=== PATIENT | male | born 1975 | race Caucasian/White ===

== ENCOUNTER 2020-09-17 02:55 | Emergency (ER) | payer MEDICAID, SELFPAY ==
[~2020-09-17] VITALS: Ht 177.8 cm; Wt 122.5 kg
[2020-09-17 03:00] VITALS: BP_SYST 194
[2020-09-17] MEDS ORDERED: ONDANSETRON HCL 4 MG/2 ML VIAL IVP ONE (03:15)
[2020-09-17] MEDS ORDERED: PANTOPRAZOLE SODIUM 40 MG/VIAL (PROTONIX) IVP ONE (03:15)
[2020-09-17] MEDS ORDERED: cefTRIAXone 1 GM IVPB PREMIX 50 ML IV ONE (03:15)
[2020-09-17] MEDS ORDERED: INSU100V38 SQ (03:44)
[2020-09-17] MEDS ORDERED: INSU100I30 SQ (03:44)
[2020-09-17] MEDS ORDERED: AZEL137S7 NS (03:44)
[2020-09-17] MEDS ORDERED: NEU300 PO (03:44)
[2020-09-17] MEDS ORDERED: FURO-150 PO (03:44)
[2020-09-17] MEDS ORDERED: CYCL-10 PO (03:44)
[2020-09-17] MEDS ORDERED: NAPR-688 PO (03:44)
[2020-09-17] MEDS ORDERED: APIX5TAB4 PO (03:44)
[2020-09-17] MEDS ORDERED: FLUT200B INH (03:44)
[2020-09-17] MEDS ORDERED: CETI10CA20 PO (03:44)
[2020-09-17] MEDS ORDERED: FLUT16SP16 NS (03:44)
[2020-09-17] MEDS ORDERED: GLU500 PO (03:44)
[2020-09-17] MEDS ORDERED: ALBMDI INH (03:44)
[2020-09-17] MEDS ORDERED: TOPXL100 PO (03:44)
[2020-09-17 03:46] LABS: BASOPHILS # (AUTO) 0.1 K/uL (0.0-0.2); BASOPHILS % (AUTO) 0.5 % (0.0-2.0); HEMATOCRIT 43.9 % (36-54); HEMOGLOBIN 14.6 g/dL (14.0-18.0); LYMPHOCYTES # (AUTO) 1.2 K/uL (1.0-5.5); LYMPHOCYTES % (AUTO) 9.4 % (20.5-51.5); MEAN CORPUSCULAR HEMOGLOBIN 30 pg (27-31); MEAN CORPUSCULAR HGB CONC 33 % (32-36); MEAN CORPUSCULAR VOLUME 89 fL (79.0-98.0); MONOCYTES # (AUTO) 0.7 K/uL (0.0-1.0); MONOCYTES % (AUTO) 5.4 % (1.7-9.3); NEUTROPHILS % (AUTO) 84.7 % (40.0-70.0); PLATELET COUNT (AUTO) 321 K/uL (130-430); RED BLOOD CELL COUNT(AUTO) 4.95 MIL/uL (4.2-6.2); RED CELL DISTRIBUTION WIDTH 12.9 % (9.0-15.0)
[2020-09-17 04:00] LABS: ANION GAP 12 (5-15); CALCIUM 11.1 mg/dL (8.4-11.0); CHLORIDE 103 mmol/L (98-107); CREATININE 1.24 mg/dL (0.55-1.30); GLUCOSE 152 mg/dL (70-99); POTASSIUM 4.7 mmol/L (3.5-5.1); SODIUM SERUM 142 mmol/L (136-145); UREA NITROGEN, BLOOD 22 mg/dL (8-21)
[2020-09-17] MEDS ORDERED: NACL 0.9% 1,000 ML IV ONE (04:00)
[2020-09-17 04:06] LABS: GFR AFRICAN AMERICAN 82 mL/min (>90)
[2020-09-17 04:07] LABS: ALANINE AMINOTRANSFERASE 37 U/L (12-78); ALBUMIN 4.1 g/dL (3.4-4.8); ASPARTATE AMINOTRANSFERASE 21 U/L (10-37); TOTAL BILIRUBIN 0.6 mg/dL (0.0-1.0)
[2020-09-17] MEDS ORDERED: DIPHENHYDRAMINE INJ 50 MG/ML VIAL ONE (04:14)
[2020-09-17] MEDS ORDERED: METOCLOPRAMIDE HCL 10 MG/2 ML VIAL ONE (04:14)
[2020-09-17 04:15] LABS: INR 1.1 (0.80-1.20); PROTHROMBIN TIME 11.3 SECS (9.5-12.5)
[2020-09-17] MEDS ORDERED: METOCLOPRAMIDE HCL 10 MG/2 ML VIAL IVP ONE (04:15)
[2020-09-17] MEDS ORDERED: DIPHENHYDRAMINE INJ 50 MG/ML VIAL IVP ONE (04:15)
[2020-09-17] MEDS ORDERED: ONDA-8 TL (05:12)
[2020-09-17 05:17] VITALS: BP_SYST 140
== END 2020-09-17 05:17 | disposition left against medical advice (07) ==
LOC: SED 02:55
DX: K92.2 Gastrointestinal hemorrhage, unspecified (principal); R11.10 Vomiting, unspecified; E11.9 Type 2 diabetes mellitus without complications; Z79.899 Other long term (current) drug therapy; Z79.4 Long term (current) use of insulin; Z20.822 Contact with and (suspected) exposure to COVID-19
CPT/HCPCS: 36415; 71045; 80053; 82962; 83690; 83880; 84484; 85025; 85610; 85730; 87040; 87426; 96365; 96375; 99285; C9113; J0696; J1200; J2405; J2765; J7030

== ENCOUNTER 2021-04-18 20:38 | Emergency (ER) | payer MEDICAID, SELFPAY ==
[~2021-04-18] VITALS: Ht 177.8 cm; Wt 117.9 kg
[~2021-04-18 20:38] MED LIST: ALBMDI INH; APIX5TAB4 PO; AZEL137S7 NS; CETI10CA20 PO; CYCL10TA24 PO; FLUT16SP16 NS; FLUT200B INH; FURO-150 PO; GLU500 PO; INSU100I30 SQ; INSU100V38 SQ; NAPR-688 PO; NEU300 PO; ONDA-8 TL; TOPXL100 PO
[2021-04-18 20:55] VITALS: BP_SYST 141
[2021-04-18] MEDS: KETOROLAC TROMETHAMINE 60 MG/2 ML VIAL IM ONE ×2 (21:40→21:43)
[2021-04-19] MEDS ORDERED: MORPHINE 4 MG INJ. 4 MG/ML VIAL IVP ONE (01:00)
[2021-04-19] MEDS ORDERED: VANCOMYCIN HCL 1,000 MG in NS 250 ML IV ONE (01:00)
[2021-04-19] MEDS ORDERED: PIPERACILLIN/TAZO 3.375 GM in NS 50 ML IV ONE (01:00)
[2021-04-19] MEDS ORDERED: VANCOMYCIN HCL 1000 MG/VIAL IV ONE (01:41)
[2021-04-19] MEDS ORDERED: PIPERACILLIN/TAZOBACTAM 3.375 GM/VIAL (ZOSYN) IV ONE (01:42)
[2021-04-19 02:44] VITALS: BP_SYST 141
[2021-04-19 02:56] LABS: BASOPHILS % (AUTO) 0.5 % (0.0-2.0); EOSINOPHILS % (AUTO) 0.1 % (0.0-4.0); HEMATOCRIT 37.1 % (36-54); HEMOGLOBIN 12.5 g/dL (14.0-18.0); LYMPHOCYTES # (AUTO) 1.7 K/uL (1.0-5.5); LYMPHOCYTES % (AUTO) 19.6 % (20.5-51.5); MEAN CORPUSCULAR HEMOGLOBIN 29 pg (27-31); MEAN CORPUSCULAR HGB CONC 34 % (32-36); MEAN CORPUSCULAR VOLUME 85 fL (79.0-98.0); MONOCYTES # (AUTO) 0.7 K/uL (0.0-1.0); MONOCYTES % (AUTO) 8.6 % (1.7-9.3); NEUTROPHILS % (AUTO) 71.2 % (40.0-70.0); PLATELET COUNT (AUTO) 246 K/uL (130-430); RED BLOOD CELL COUNT(AUTO) 4.36 MIL/uL (4.2-6.2); RED CELL DISTRIBUTION WIDTH 13.1 % (9.0-15.0); WHITE BLOOD COUNT (AUTO) 8.4 K/uL (4.8-10.8)
[2021-04-19 03:04] LABS: PROTHROMBIN TIME 10.9 SECS (9.5-12.5)
[2021-04-19 03:17] LABS: CALCIUM 9.1 mg/dL (8.4-11.0); CREATININE 0.96 mg/dL (0.55-1.30)
[2021-04-19 03:31] LABS: ALBUMIN 3.4 g/dL (3.4-4.8); TOTAL BILIRUBIN 0.8 mg/dL (0.0-1.0)
[2021-04-19 03:39] LABS: C-REACTIVE PROTEIN QUANT 2.2 mg/dL (0-0.5)
[2021-04-19 08:02] LABS: ERYTHROCYTE SEDIMENTATION RATE 34 MM/HR (0-15)
== END 2021-04-19 02:44 | disposition short-term general hospital (02) ==
LOC: SED 20:38
DX: L03.116 Cellulitis of left lower limb (principal); E11.9 Type 2 diabetes mellitus without complications; Z79.84 Long term (current) use of oral hypoglycemic drugs; Z79.899 Other long term (current) drug therapy; Z20.822 Contact with and (suspected) exposure to COVID-19
CPT/HCPCS: 36415; 73630; 80053; 83605; 85025; 85610; 85651; 85730; 86140; 87040; 87426; 93005; 96365; 96375; 99285; J1885; J2270; J2543; J3370